=== PATIENT | male | born 1980 | race Caucasian/White ===

== ENCOUNTER → 2018-08-23 | Outpatient (CLI) | payer BC ==
[~2018-08-23] MED LIST: PHENERGAN W/CO120 ML PO; PREDNISONE20 MG PO; PRILOSEC 20MG20 MG PO; PROZAC 20MG20 MG PO; ZITHROMAX Z PA250 MG PO
== END ==
LOC: BHSO 12:51
DX: F41.1 Generalized anxiety disorder (principal)

== ENCOUNTER → 2018-09-24 | Outpatient (CLI) | payer BC | LOC: BHSO 14:01 | DX: F90.0 Attention-deficit hyperactivity disorder, predominantly inattentive type (principal) | CPT/HCPCS: G0463 ==

== ENCOUNTER → 2018-10-17 | Outpatient (CLI) | payer BC | LOC: BHSO 11:17 | DX: F90.0 Attention-deficit hyperactivity disorder, predominantly inattentive type (principal) | CPT/HCPCS: G0463 ==

== ENCOUNTER → 2018-11-26 | Outpatient (CLI) | payer BC | LOC: BHSO 10:59 | DX: F90.0 Attention-deficit hyperactivity disorder, predominantly inattentive type (principal) | CPT/HCPCS: G0463 ==